=== PATIENT | male | born 1980 | race Caucasian/White ===

== ENCOUNTER 2022-02-28 14:55 | Emergency (ER) | payer OTHER, MEDICAID ==
[~2022-02-28] VITALS: Ht 182.9 cm; Wt 89.8 kg
[2022-02-28 15:24] VITALS: BP 126/78
--- NOTE | 2022-02-28 15:32 | NUR ---
KHLOE. HANDED ON URINE CUP.
[2022-02-28 17:37] LABS: APPEARANCE,URINE CLEAR (CLEAR); BILIRUBIN,URINE NEGATIVE (NEGATIVE); BLOOD, URINE TRACE-I (NEGATIVE); COLOR,URINE YELLOW (YELLOW); LEUKOCYTE ESTERASE ,URINE NEGATIVE (NEGATIVE); NITRITE, URINE NEGATIVE (NEGATIVE); UGLUCOSE NEGATIVE (NEGATIVE)
[2022-02-28 17:42] LABS: RBC,URINE 0-5 /HPF (0-5); WBC,URINE NONE SEEN /HPF (0-5)
--- NOTE | 2022-02-28 19:18 | NUR ---
called pt . no answeing.
--- NOTE | 2022-02-28 19:19 | NUR ---
PATIENT LEFT WITHOUT BEING SEEN BY DR. Beauchamp. NO FURTHER CARE PROVIDED FOR PATIENT.
== END 2022-02-28 19:19 | disposition left against medical advice (07) ==
LOC: MED 14:55
DX: N50.811 Right testicular pain (principal); Z53.21 Procedure and treatment not carried out due to patient leaving prior to being seen by health care provider
CPT/HCPCS: 81001